=== PATIENT | female | born 1950 | race Caucasian/White ===

== ENCOUNTER → 2017-11-14 | Outpatient (CLI) | payer MEDICARE, OTHER ==
[~2017-11-14] MED LIST: DOCU100 PO; FURO40; OXYACE5T PO; PIOG15
[2017-11-14 14:12] LABS: CHOL/HDL RATIO 3.7; Cholesterol 190 mg/dL (50-200); HDL Cholesterol 51 mg/dL (>39); LDL/HDL RATIO 2.2; Low Density Lipoprotein Chol 110 mg/dL (0-110); Triglycerides 146 mg/dL (30-160); Very Low Density Lipoprot Chol 29 mg/dL (6-32)
== END ==
LOC: LAB SHORT 11:23 → LAB 11:23
PROVIDERS: Hospitalist
DX: E11.40 Type 2 diabetes mellitus with diabetic neuropathy, unspecified (principal)
CPT/HCPCS: 80061; 83036

== ENCOUNTER → 2018-11-27 | Outpatient (CLI) | payer MEDICARE, OTHER | END | disposition home or self-care (01) | LOC: LAB 17:42 → LAB SHORT 17:42 | DX: L08.9 Local infection of the skin and subcutaneous tissue, unspecified (principal) | CPT/HCPCS: 87070; 87075; 87077; 87147; 87186; 87205 ==

== ENCOUNTER → 2021-09-01 | Outpatient (CLI) | payer MEDICARE, OTHER ==
[2021-09-01 19:50] LABS: Creatinine, Blood 0.81 mg/dL (0.40-1.00)
== END | disposition home or self-care (01) ==
LOC: LAB SHORT 14:40
PROVIDERS: Hospitalist
DX: R10.30 Lower abdominal pain, unspecified (principal)
CPT/HCPCS: 82565; 84520

== ENCOUNTER → 2021-11-09 | Outpatient (CLI) | payer MEDICARE, OTHER ==
[2021-11-09 15:15] LABS: Alanine Aminotransfer (ALT/SGP 18 U/L (12-78); Albumin, Blood 3.5 g/dL (3.4-5.0); Albumin/Globulin Ratio 1.1 (0.8-1.8); Alk Phos 109 U/L (50-136); Anion Gap 7 mmol/L (6-16); Aspartate Aminotrans (AST/SGOT 17 U/L (12-37); Bilirubin, Total 0.4 mg/dL (0.1-1.0); Blood Urea Nitrogen 17 mg/dL (8-24); Bun/Creatinine Ratio 24.3 (12.0-20.0); CHOL/HDL RATIO 3.6; CO2, Blood 28 mmol/L (21-32); Calcium, Blood 9.2 mg/dL (8.5-10.1); Chloride, Blood 107 mmol/L (98-108); Cholesterol 192 mg/dL (50-200); Globulin, Blood 3.2 g/dL (2.2-4.0); Glomerular Filtration Rate 94 (60-); Glucose, Blood 120 mg/dL (70-99); HDL Cholesterol 53 mg/dL (>39); LDL/HDL RATIO 2.1; Low Density Lipoprotein Chol 113 mg/dL (0-110); Potassium, Blood 4.3 mmol/L (3.5-5.5); Sodium, Blood 142 mmol/L (136-145); Total Protein, Blood 6.7 g/dL (6.4-8.2); Triglycerides 129 mg/dL (30-160); Very Low Density Lipoprot Chol 25 mg/dL (6-32)
== END | disposition home or self-care (01) ==
LOC: LAB SHORT 10:25
PROVIDERS: Hospitalist
DX: E11.40 Type 2 diabetes mellitus with diabetic neuropathy, unspecified (principal); I10 Essential (primary) hypertension; E78.5 Hyperlipidemia, unspecified
CPT/HCPCS: 80053; 80061; 82043; 83036

== ENCOUNTER → 2022-07-31 | Outpatient (CLI) | payer MEDICARE, OTHER ==
[2022-07-31 19:54] LABS: BASOPHILS PERCENT AUTO 1 % (0-2); EOSINOPHILS ABSOLUTE AUTO 0.18 K/mm3 (0.00-0.68); EOSINOPHILS PERCENT AUTO 2 % (0-6); Hematocrit 43.2 % (33.0-51.0); Hemoglobin 14.4 g/dL (11.5-16.0); IMMATURE GRAN ABSOLUTE AUTO 0.03 K/mm3 (0.00-0.10); IMMATURE GRAN PERCENT AUTO 0 % (0-1); LYMPHOCYTES ABSOLUTE AUTO 2.04 K/mm3 (0.84-5.20); LYMPHOCYTES PERCENT AUTO 22 % (21-46); MONOCYTES ABSOLUTE AUTO 0.89 K/mm3 (0.16-1.47); MONOCYTES PERCENT AUTO 10 % (4-13); Mean Corpuscular HGB 27.7 pg (26.0-34.0); Mean Corpuscular HGB Conc 33.3 g/dL (31.5-36.5); Mean Corpuscular Volume 83 fL (80-100); Mean Platelet Volume 10.6 fL (9.1-12.4); NEUTROPHILS ABSOLUTE AUTO 6.17 K/mm3 (1.96-9.15); NEUTROPHILS PERCENT AUTO 66 % (41-73); Platelet Count 393 K/mm3 (150-400); RDW Coefficient Variation 13.2 % (11.7-14.2); RDW Standard Deviation 40.2 fL (35.1-46.3); White Blood Cell Count 9.41 K/mm3 (4.00-11.30)
[2022-07-31 22:57] LABS: Albumin, Blood 3.6 g/dL (3.4-5.0); Albumin/Globulin Ratio 0.9 (0.8-1.8); Bilirubin, Total 0.6 mg/dL (0.1-1.0); Bun/Creatinine Ratio 15.8 (12.0-20.0); Calcium, Blood 9.8 mg/dL (8.5-10.1); Creatinine, Blood 0.63 mg/dL (0.40-1.00); Globulin, Blood 3.8 g/dL (2.2-4.0); Potassium, Blood 3.9 mmol/L (3.5-5.5); Total Protein, Blood 7.4 g/dL (6.4-8.2)
== END ==
LOC: LAB SHORT 16:20 → LAB 16:20
PROVIDERS: Hospitalist
DX: R10.13 Epigastric pain (principal)
CPT/HCPCS: 80053; 83690; 85025

== ENCOUNTER → 2022-08-03 | Outpatient (CLI) | payer MEDICARE, OTHER | END | disposition home or self-care (01) | LOC: LAB SHORT 13:45 | DX: R33.9 Retention of urine, unspecified (principal) | CPT/HCPCS: 87077; 87086; 87186 ==

== ENCOUNTER → 2023-01-29 | Outpatient (CLI) | payer MEDICARE, OTHER ==
[2023-01-29 17:25] LABS: Calcium, Blood 9.2 mg/dL (8.5-10.1); Creatinine, Blood 0.68 mg/dL (0.40-1.00); Potassium, Blood 4.3 mmol/L (3.5-5.5)
[2023-01-29 18:10] LABS: Microalb/Creat Ratio UR, Rand 23.536 mg/g (0.000-30.000); Microalbumin, Random Urine 42.6 mg/L (0.000-20.000)
== END | disposition home or self-care (01) ==
LOC: LAB 14:48 → LAB SHORT 14:48
PROVIDERS: Hospitalist
DX: E11.22 Type 2 diabetes mellitus with diabetic chronic kidney disease (principal); I12.9 Hypertensive chronic kidney disease with stage 1 through stage 4 chronic kidney disease, or unspecified chronic kidney disease; N18.9 Chronic kidney disease, unspecified
CPT/HCPCS: 80048; 82043; 82570

== ENCOUNTER → 2023-07-25 | Outpatient (CLI) | payer MEDICARE, OTHER ==
[2023-07-25 14:09] LABS: Influenza A, PCR NEGATIVE (NEGATIVE); Influenza B, PCR NEGATIVE (NEGATIVE); Resp Syncytial Virus, PCR NEGATIVE (NEGATIVE); SARS-Cov-2 (COVID-19) PCR, MMC NEGATIVE (NEGATIVE)
== END | disposition home or self-care (01) ==
LOC: LAB SHORT 11:05
PROVIDERS: Hospitalist
DX: J06.9 Acute upper respiratory infection, unspecified (principal)
CPT/HCPCS: 0241U

== ENCOUNTER → 2024-01-23 | Outpatient (CLI) | payer MEDICARE, OTHER ==
[~2024-01-23] MED LIST changes: +BASAGLAR K100 UNIT/3 SC; +CARVEDILOL25 M9 PO; +Carvedilol12.5 MG PO; +ELIQUIS5 M2 PO; +FLUTICASONE-SA1 EAC9 INH; +FUROSEMIDE40 MG PO; +GLIP10ER PO; +JARDIANCE10 MG PO; +KLOR-CON 1010 ME9 PO; +LOSARTAN POTASS50 M1 PO; +PLAVIX75 MG PO; +SPIRONOLACTONE50 MG PO
[2024-01-23 20:20] LABS: Albumin, Blood 3.1 g/dL (3.4-5.0); Albumin/Globulin Ratio 0.8 (0.8-1.8); Calcium, Blood 8.8 mg/dL (8.5-10.1); Creatinine, Blood 0.93 mg/dL (0.40-1.00); Globulin, Blood 3.7 g/dL (2.2-4.0); Potassium, Blood 3.6 mmol/L (3.5-5.5); Total Protein, Blood 6.8 g/dL (6.4-8.2)
== END ==
LOC: LAB 17:18 → LAB SHORT 17:18
PROVIDERS: Hospitalist
DX: I13.0 Hypertensive heart and chronic kidney disease with heart failure and stage 1 through stage 4 chronic kidney disease, or unspecified chronic kidney disease (principal); E11.22 Type 2 diabetes mellitus with diabetic chronic kidney disease
CPT/HCPCS: 80053; 83036; 83880

== ENCOUNTER 2024-01-30 15:10 | Inpatient (IN) | payer MEDICARE, OTHER ==
[~2024-01-30] VITALS: Ht 165.1 cm; Wt 101.7 kg
[~2024-01-30 15:10] MED LIST changes: -BASAGLAR K100 UNIT/3 SC; -CARVEDILOL25 M9 PO; -Carvedilol12.5 MG PO; -ELIQUIS5 M2 PO; -FLUTICASONE-SA1 EAC9 INH; -FUROSEMIDE40 MG PO; -GLIP10ER PO; -JARDIANCE10 MG PO; -KLOR-CON 1010 ME9 PO; -LOSARTAN POTASS50 M1 PO; -PLAVIX75 MG PO; -SPIRONOLACTONE50 MG PO
[2024-01-30 16:01] LABS: BASOPHILS ABSOLUTE AUTO 0.09 K/mm3 (0.00-0.23); BASOPHILS PERCENT AUTO 1 % (0-2); EOSINOPHILS ABSOLUTE AUTO 0.27 K/mm3 (0.00-0.68); EOSINOPHILS PERCENT AUTO 4 % (0-6); Hematocrit 39.8 % (33.0-51.0); Hemoglobin 12.4 g/dL (11.5-16.0); IMMATURE GRAN ABSOLUTE AUTO 0.03 K/mm3 (0.00-0.10); IMMATURE GRAN PERCENT AUTO 0 % (0-1); LYMPHOCYTES ABSOLUTE AUTO 1.32 K/mm3 (0.84-5.20); LYMPHOCYTES PERCENT AUTO 20 % (21-46); MONOCYTES ABSOLUTE AUTO 0.53 K/mm3 (0.16-1.47); MONOCYTES PERCENT AUTO 8 % (4-13); Mean Corpuscular HGB 26.6 pg (26.0-34.0); Mean Corpuscular HGB Conc 31.2 g/dL (31.5-36.5); Mean Corpuscular Volume 85 fL (80-100); NEUTROPHILS ABSOLUTE AUTO 4.43 K/mm3 (1.96-9.15); NEUTROPHILS PERCENT AUTO 67 % (41-73); Platelet Count 297 K/mm3 (150-400); RDW Coefficient Variation 16.4 % (11.7-14.2); RDW Standard Deviation 51.2 fL (35.1-46.3); Red Blood Cell Count 4.66 M/mm3 (3.80-5.20); White Blood Cell Count 6.67 K/mm3 (4.00-11.30)
[2024-01-30 16:20] LABS: Albumin, Blood 2.9 g/dL (3.4-5.0); Albumin/Globulin Ratio 0.7 (0.8-1.8); Bilirubin, Total 0.5 mg/dL (0.1-1.0); Bun/Creatinine Ratio 17.1 (12.0-20.0); Creatinine, Blood 0.82 mg/dL (0.40-1.00); Potassium, Blood 3.5 mmol/L (3.5-5.5); Total Protein, Blood 6.9 g/dL (6.4-8.2)
[2024-01-30] MEDS ORDERED: Acetaminophen 325 MG TABLET PO PRN (21:05)
[2024-01-30] MEDS ORDERED: Metoprolol Tartrate 1 MG/ML 5 ML VIAL IV PRN (21:05)
[2024-01-30] MEDS ORDERED: Ondansetron HCl 2 MG / ML 2ML Vial IV PRN (21:05)
[2024-01-30] MEDS ORDERED: Albuterol 2.5 MG/3 ML VIAL INH PRN (21:10)
[2024-01-30] MEDS ORDERED: Insulin Glargine-Yfgn 100 Unit/mL 3 ML SYR SC SCH (22:00)
[2024-01-30] MEDS ORDERED: Furosemide 10 MG/ML 4ML Vial IV SCH (22:00)
[2024-01-30] MEDS ORDERED: Carvedilol 6.25 MG Tab PO SCH (22:00)
[2024-01-30] MEDS ORDERED: SPIRONOLACTONE50 MG PO (22:19)
[2024-01-30] MEDS ORDERED: CARVEDILOL25 M9 PO (22:19)
[2024-01-30] MEDS ORDERED: FUROSEMIDE40 MG PO (22:19)
[2024-01-30] MEDS ORDERED: LOSARTAN POTASS50 M1 PO (22:20)
[2024-01-30] MEDS ORDERED: FLUTICASONE-SA1 EAC9 INH (22:20)
[2024-01-30] MEDS ORDERED: PLAVIX75 MG PO (22:20)
[2024-01-30] MEDS ORDERED: BASAGLAR K100 UNIT/3 SC (22:20)
[2024-01-30] MEDS ORDERED: GLIP10ER PO (22:21)
[2024-01-30] MEDS ORDERED: KLOR-CON 1010 ME9 PO (22:21)
[2024-01-30 23:30] VITALS: BP 129/53
[2024-01-31 02:14] LABS: BASOPHILS ABSOLUTE AUTO 0.07 K/mm3 (0.00-0.23); BASOPHILS PERCENT AUTO 1 % (0-2); EOSINOPHILS ABSOLUTE AUTO 0.23 K/mm3 (0.00-0.68); EOSINOPHILS PERCENT AUTO 3 % (0-6); Hematocrit 40.6 % (33.0-51.0); Hemoglobin 12.6 g/dL (11.5-16.0); IMMATURE GRAN ABSOLUTE AUTO 0.03 K/mm3 (0.00-0.10); IMMATURE GRAN PERCENT AUTO 0 % (0-1); LYMPHOCYTES ABSOLUTE AUTO 1.52 K/mm3 (0.84-5.20); LYMPHOCYTES PERCENT AUTO 21 % (21-46); MONOCYTES ABSOLUTE AUTO 0.58 K/mm3 (0.16-1.47); MONOCYTES PERCENT AUTO 8 % (4-13); Mean Corpuscular HGB 26.4 pg (26.0-34.0); Mean Corpuscular Volume 85 fL (80-100); Mean Platelet Volume 9.5 fL (9.1-12.4); NEUTROPHILS ABSOLUTE AUTO 4.75 K/mm3 (1.96-9.15); NEUTROPHILS PERCENT AUTO 66 % (41-73); Platelet Count 294 K/mm3 (150-400); RDW Coefficient Variation 16.6 % (11.7-14.2); RDW Standard Deviation 51.8 fL (35.1-46.3); Red Blood Cell Count 4.77 M/mm3 (3.80-5.20); White Blood Cell Count 7.18 K/mm3 (4.00-11.30)
[2024-01-31 02:42] LABS: Albumin/Globulin Ratio 0.8 (0.8-1.8); Bilirubin, Total 0.8 mg/dL (0.1-1.0); Calcium, Blood 9.2 mg/dL (8.5-10.1); Creatinine, Blood 0.88 mg/dL (0.40-1.00); Magnesium, Blood 1.9 mg/dL (1.6-2.4); Potassium, Blood 3.6 mmol/L (3.5-5.5)
[2024-01-31 04:11] VITALS: BP 118/70
--- NOTE | 2024-01-31 05:58 | NUR ---
SHIFT SUMMARY ASSUMED CARE OF PT AT 2300. PT IS A/OX4. HEART SOUNDS IRREGULAR. PT SHOWED AFLUTTER IN THE 90-110S. LUNG SOUNDS DIMINISHED AT BASES. PT ON 2L NC. PT TITRATED OFF THIS AM AT 0500. PT WAS A 1P SBA TO BSC, PT VOIDED CLEAR YELLOW URINE. PT STATES FEELING LESS SOB THIS AM AND BEING ABLE TO SEE HER ANKLES THIS AM. PT HAS LARGE BRUISE ON HER L BACK FROM HER FALL YESTERDAY. PT C/O PAIN, MEDICATED PER EMAR. TELE MONITOR CONCERNED FOR PT STRIP, NOTING ST ELEVATION. THIS NURSE NOTIFIED RESIDENT MU WHO ORDERED NEW EKG AND REVEIWED CHART. PT TROPS TRENDED ALSO. PT ASYMPTOMATIC AND DENIES CP.
[2024-01-31] MEDS ORDERED: Insulin Human Lispro 100 Units/ML 3ML Syringe SC SCH (07:30)
[2024-01-31 08:14] VITALS: BP 116/91
[2024-01-31] MEDS ORDERED: Apixaban 5 MG Tab PO SCH (09:00)
[2024-01-31] MEDS ORDERED: Mometasone/Formoterol MDI 200/5 mcg 13 GM INH SCH (13:20)
[2024-01-31] MEDS ORDERED: Empagliflozin 10 MG TAB PO SCH (14:00)
[2024-01-31 16:24] VITALS: BP 127/90
--- NOTE | 2024-01-31 17:49 | NUR ---
SUMMARY PT A/O X4. HAS BEEN OOB TO BATHROOM AND SITS AT EDGE OF BED MOST OF THE DAY. ASKING LOTS OF QUESTIONS ABOUT MEDS AND PLAN OF CARE, PROVIDING EDUCATION BOTH VERBAL AND WRITTEN TO PT AND FAMILY. TOLERATING MEALS. NO ACUTE CHANGES TODAY.
[2024-01-31 19:40] VITALS: BP 122/99
[2024-01-31] MEDS ORDERED: Methyl Salicylate/Menth/Camph 57 GM TUBE TOP PRN (20:00)
[2024-02-01 03:20] VITALS: BP 103/76
--- NOTE | 2024-02-01 05:17 | NUR ---
SHIFT SUMMARY ASSUMED CARE OF PT AT 1900. PT IS A/OX4. HEART SOUNDS IRREGULAR. LUNG SOUNDS DIMINISHED AT BASES. PT NEEDED TO WEAR 3L NC WHILE SLEEPING THIS NOC. PT DENIES SOB. PT LEGS HAVE 2+ EDEMA, PT STATES THEY FEEL BETTER THAN YESTERDAY. PT A 1P SBA TO BATHROOM FOR CORD ASSIST. PT HAD BACK PAIN T/O THE NOC. MEDICATED PER EMAR.
[2024-02-01 07:47] VITALS: BP 117/94
[2024-02-01] MEDS ORDERED: Losartan Potassium 50 MG Tab PO SCH (09:00)
[2024-02-01] MEDS ORDERED: Clopidogrel Bisulfate 75 MG Tab PO SCH (09:00)
[2024-02-01] MEDS ORDERED: Spironolactone 50 MG Tab PO SCH (09:00)
--- NOTE | 2024-02-01 10:23 | NUR ---
Pt is alert, oriented to person, place, date, ongoing and recent events. States she is not in pain when she is not moving. She is drowsy, nodding to sleep while sitting in recliner chair. Received pain med (Tylenol) for pain 8 earlier.
--- NOTE | 2024-02-01 10:54 | NUR ---
Pt is agreeable to discharge today.
[2024-02-01] MEDS ORDERED: Carvedilol12.5 MG PO (12:22)
[2024-02-01] MEDS ORDERED: JARDIANCE10 MG PO (12:23)
[2024-02-01] MEDS ORDERED: ELIQUIS5 M2 PO (12:46)
--- NOTE | 2024-02-01 13:00 | NUR ---
Discussed discharge instructions with the patient. She has two family members at the bedside, involved in the conversation with us. Pt expressed concern about picking up her existing eliquis prescription at [facility] because it is "$600 a month". Spoke with Dr. Newton about this; he said he would be fine with her taking Xarelto, which was mentioned by the pt's daughter, but it would not necessarily be cheaper. The pt would like to discuss it with her PCP, Dr. Echavarria. The hospitalist said that would be fine for her to wait to discuss it with Dr. Echavarria at her hospital follow up in 3-5 days.
--- NOTE | 2024-02-01 14:02 | NUR ---
Discharge summary Pt given discharge instructions verbally and in print. Prescriptions faxed to [email or web address]. Education given pertaining to CHF, diabetes, and nutrition. Pt exited via wheelchair and received a ride home from a friend. Questions answered.
== END 2024-02-01 13:18 | disposition home or self-care (01) | DRG 280 ==
LOC: ER 15:10 → PCU 21:42
PROVIDERS: Emergency Medicine; Nurse Practitioner Acute Care; ADMIT Internal Medicine
DX: I13.0 Hypertensive heart and chronic kidney disease with heart failure and stage 1 through stage 4 chronic kidney disease, or unspecified chronic kidney disease (principal); I50.23 Acute on chronic systolic (congestive) heart failure; I21.A1 Myocardial infarction type 2; J96.01 Acute respiratory failure with hypoxia; I48.91 Unspecified atrial fibrillation; J44.9 Chronic obstructive pulmonary disease, unspecified; N18.9 Chronic kidney disease, unspecified; E11.22 Type 2 diabetes mellitus with diabetic chronic kidney disease; S09.90XA Unspecified injury of head, initial encounter; E78.5 Hyperlipidemia, unspecified; J45.40 Moderate persistent asthma, uncomplicated; G47.33 Obstructive sleep apnea (adult) (pediatric); K21.9 Gastro-esophageal reflux disease without esophagitis; Z91.148 Patient's other noncompliance with medication regimen for other reason; W19.XXXA Unspecified fall, initial encounter; Z79.01 Long term (current) use of anticoagulants; Z79.891 Long term (current) use of opiate analgesic; Z79.899 Other long term (current) drug therapy; Z79.4 Long term (current) use of insulin
CPT/HCPCS: 36415; 70450; 71045; 80053; 82947; 83735; 83880; 84484; 85025; 93005; 93010; 94640; 94664; 94762; 97110; 97162; 97530; 99285-25; A9270; J1815; J1940

== ENCOUNTER → 2024-12-30 | Outpatient (CLI) | payer MEDICARE, OTHER ==
[~2024-12-30] MED LIST changes: +ARTIFICIAL TEARS; +BASAGLAR K100 UNIT/3 SC; +CARVEDILOL25 M9 PO; +Carvedilol12.5 MG PO; +ELIQUIS5 M2 PO; +FLUTICASONE-SA1 EAC9 INH; +FURO20 PO; +FUROSEMIDE40 MG PO; +GLIP10ER PO; +GLIP5ER PO; +JARDIANCE10 MG PO; +KLOR-CON 1010 ME9 PO; +LOSARTAN POTASS50 M1 PO; +PANT20 PO; +PLAVIX75 MG PO; +SPIRONOLACTONE50 MG PO
[2024-12-30 20:11] LABS: Anion Gap 12.0 mmol/L (3-11); Blood Urea Nitrogen 18.0 mg/dL (8-24); CO2, Blood 26.0 mmol/L (21-32); Calcium, Blood 9.4 mg/dL (8.5-10.1); Chloride, Blood 100.0 mmol/L (98-108); Creatinine, Blood 0.89 mg/dL (0.40-1.00); Glucose, Blood 217.0 mg/dL (70-99); Potassium, Blood 4.5 mmol/L (3.5-5.5); Sodium, Blood 133.0 mmol/L (136-145)
== END ==
LOC: LAB 17:17 → LAB SHORT 17:17
PROVIDERS: Hospitalist
DX: E11.22 Type 2 diabetes mellitus with diabetic chronic kidney disease (principal); I13.0 Hypertensive heart and chronic kidney disease with heart failure and stage 1 through stage 4 chronic kidney disease, or unspecified chronic kidney disease
CPT/HCPCS: 80048; 83036